=== PATIENT | female | born 1985 | race Caucasian/White ===

== ENCOUNTER 2022-03-25 11:15 | Day surgery (SDC) | payer BC, SELFPAY ==
--- NOTE | 2022-03-02 13:16 | PCM.HP.BLA ---
History and Physical Date of Admission: 03/25/22 HPI: The patient is a 36 year old female presenting for pre-operative visit. She is scheduled for Hysteroscopy D&C and endoemtrial ablation, for menorrhagia on 03/25/22. Procedure discussed along with risks, benefits and complications. Other alternatives discussed for management. Consent form signed? Yes. ? ? PAST MEDICAL HISTORY PAST MEDICAL HISTORY Diagnosis Date ? DEPRESSION 2007 ? Gestational diabetes 08/23/2012 ? History of depression 08/22/2012 ? 08/22/2012Pt has a history of depression diagnosed in 2007. She has been off medication for 4 years. She believes she is doing well off medication. She had previously seen a doctor in [place], [place]. Discussed increased risks of depression during and and importance of reporting the development or worsening of symptoms should they occur. Pt denies ever having any suicidal tho ? History of PCOS ? ? Infertility, female ? ? Preeclampsia ? ? ? PAST SURGICAL HISTORY PAST SURGICAL HISTORY Procedure Laterality Date ? SECTION HX ? 03/23/2013 ? GASTRIC BYPASS HX ? 2019 ? KNEE LEFT OP SURGERY ? 08/01/2004 ? KNEE SURGERY HX ? 09/01/2014 ? right knee ? PAST SURGICAL HISTORY OF ? 2017 ? tubal sterilization ? ? ? CURRENT MEDICATIONS Current Outpatient Medications Medication Sig Dispense Refill ? rOPINIRole (REQUIP) 1 mg tablet Take 1 mg by mouth. ? ? ? metoprolol tartrate, short acting, (LOPRESSOR) 25 mg tablet Take 25 mg by mouth twice daily. ? ? ? tranexamic acid (LYSTEDA) 650 mg tablet Take 2 tablets by mouth three times daily as needed (heavy menstrual bleeding) for up to 5 days. (Patient not taking: Reported on 01/25/2022 ) 30 tablet 1 ? No current facility-administered medications for this visit. ? ? ALLERGIES: Patient has no known allergies. ? PERSONAL HISTORY: SOCIAL HISTORY Social History ? Tobacco Use ? Smoking status: Never Smoker ? Smokeless tobacco: Never Used Substance Use Topics ? Alcohol use: Yes ? ? Comment: rare,NOT WHILE ? Drug use: No ? FAMILY HISTORY: FAMILY HISTORY FAMILY HISTORY Problem Relation Age of Onset ? Diabetes Maternal Grandmother ? ? Diabetes Paternal Grandfather ? ? Cancer Maternal Grandmother ? ? UTERINE ? Breast Cancer Mother 50 ? ? REVIEW OF SYMPTOMS: GENERAL: denies fevers or chills ENDOCRINOLOGY: has not been on steroids Cardiology : denies palpitations or chest pain Respiratory: denies SOB or cough Hematology: denies history of prolonged bleeding or easy bruising or VTE Allergy: Denies history of personal or family history of allergy to anesthesia ? PHYSICAL EXAMINATION: ? VITALS: Last menstrual period 01/03/2022. ? GENERAL: The patient is well nourished, well hydrated in no acute distress. , The patient is oriented to time, place, and person. NECK: Supple. No lynphadenopathy, normal thyroid, no thyromegaly. LUNGS: Clear to auscultation bilaterally. no wheezes, rhonchi or rales HEART: Regular rate and rhythm, Normal heart sounds and No murmurs or gallops ? IMPRESSION: menorrhagia ? PLAN: The risks/benefits/alternatives and personal involved for the planned hysteroscopy D&C w/ endometrial ablation were reviewed with the patient. Her questions were answered to her satisfaction and she desires to proceed. Consent was signed. I reviewed with her postop instructions and expectations. ? ? I have reviewed and updated past medical and surgical history, medications and allergies Assessment & Plan Assessment/Plan (1) Menorrhagia:
[2022-03-25] VITALS (10 sets, daily range): BP systolic 122–145; BP diastolic 73–96; PULSE 72–88; RESP 16; TEMP 36.4–36.8; O2SAT 97–100; BMI 35.2
[2022-03-25 11:53] LABS: Internal QC Validated? YES +Cl - CLEAR BKGD; Pregnancy, Urine Negative Negative
[2022-03-25] MEDS: Acetaminophen 500 MG Tablet 1000 MG PO (12:07)
[2022-03-25] MEDS: Lactated Ringers 1,000 ML 15 ML IV (12:07)
[2022-03-25] MEDS: Ketorolac 30 MG/ML Syringe IV (12:08)
[2022-03-25 12:34] LABS: Hematocrit 35.5 % (37-47); Hemoglobin 11.7 g/dL (12.0-15.0); Mean Corpuscular Hgb 28.3 pg (27.0-32.0); Mean Corpuscular Volume 85.7 fL (81-99); Mean Platelet Vol. 11.2 fl (6.2-12.0); Platelet Count 136 K/mm3 (150-450); RBC Distribution Width CV 13.4 % (11.6-14.6); RBC Distribution Width SD 41.9 fl (35.1-43.9); Red Blood Count 4.14 M/mm3 (4.2-5.4); White Blood Count 5.1 K/mm3 (4.4-11.0)
--- NOTE | 2022-03-25 13:15 | DCINST_ITS ---
Discharge Instructions Diet Discharge Diet: No restrictions Activity May resume sexual activity in: 1 week Lifting Restrictions: none Dressing / Incision Call your doctor if your incision/area has: Sudden Increased Bleeding and Foul Smelling Discharge Call your doctor if you observe: Fever of 101 or Higher and Using more than 1 pad per hour (for 2 hrs in a row) Follow Up Care Please Follow Up With: Chelsie Gore MD When: 2-4 weeks or as needed. Call [phone] to make an appointment or with any concerns. Test Results: Test results from this visit will be discussed in further detail at your follow- up appointment, if applicable. Discharge Plan Admission Primary Reason for Your Visit: Endometrial ablation Attending Provider: Chelsie Gore Primary Care Provider: Yee Serrano NP Discharge Orders/Prescriptions Prescriptions: New ibuprofen [ibuprofen] 600 MG tablet 600 mg PO Q6H PRN (Reason: Pain) 10 Days Qty: 20 1RF Continued ropinirole 1 mg tablet 1.5 mg PO DAILY Label Comments: TAKE 1 TABLET BY MOUTH AT BEDTIME metoprolol succinate 25 mg tablet extended release 24 hr 25 mg PO DAILY Referrals / Follow Up: Yee Serrano NP, [facility] [facility]ATOR[facility] [Primary Care Provider] - Disposition Disposition (needs filled in before D/C Order can be placed): Home, Self Care
--- NOTE | 2022-03-25 13:18 | PCM.OPRPT ---
Problems Associated Problem List Diagnoses (1) Menorrhagia: Report of Operation Date of Procedure: 03/25/22 Pre-Operative Diagnosis: menorrhagia` Post-Operative Diagnosis: same Surgery/Procedure Performed:: Hysteroscopy with endometrial ablation- Faye Description of Surgical Findings:: normal cervix, vagina and endometrial cavity Surgeon: Chelsie Gore behavioral modification assistant: Jadiel Interiano Type of Anesthesia: MAC Anesthesiologist: Anand Rodriguez Special Medications: none Specimen's removed: none Drains: none Estimated Blood Loss (mL): 10 Fluids Replaced: 1100 Description of Procedure: The patient was taken to the OR where she was prepped and draped in dorsal lithotomy position. The weighted speculum was placed in the vagina and the anterior lip of the cervix was grasped with a single-tooth tenaculum. A paracervical block was administered with 1% lidocaine with 1-200,000 epinephrine solution. The cervix was dilated serially with Hegar dilators. The 5mm hysteroscope was placed into the uterine cavity and the above findings were noted. Bilateral tubal ostia were identified. The uterus sounded to 8cm and the cervical length was 4 cm. The endometrial cavity length was 4cm. The hysteroscope was removed. The Faye device was set to 4cm. The instrument was then seated into the endometrial cavity and the indicator was in the green. The cervical seal balloon was inflated and the uterine integrity test was passed. The ablation procedure was initiated and completed without interruption. During the ablation procedure gentle traction was held on the tenaculum and the Faye device was held up against the uterine fundus. When the ablation procedure was completed the Faye was removed. The tenaculum was removed and the tenaculum site was noted to be hemostatic. All sponge and needle counts were correct. A vaginal sweep was performed by me. The patient was awakened and taken to the recovery room in stable condition. Hysteroscopic ins: 300cc normal saline Hysteroscopic outs:200cc Findings: Endometrial cavity: Normal, no fibroids or polyps noted Cervix: Normal Vagina: Normal Grafts/Implants Used: none Procedure Start Time: 13:32 Procedure Stop Time: 13:45 Complications none Admit VTE Documentation VTE Present on Admission: No VTE Mechan Device Prophylaxis: SCD's Reason prophylaxis not ordered:: Procedure Not Indicated
[2022-03-25] MEDS: Lidocaine 1%/Epi 1:200 (30ml) 30 ML AMPUL (13:32)
[2022-03-25] MEDS: Lactated Ringers 1,000 ML 75 ML IV (14:46)
[2022-03-25] MEDS: oxyCODONE 5 MG Tablet PO (15:25)
== END 2022-03-25 16:21 | disposition home or self-care (01) ==
LOC: SDC 11:20 → AC 11:21
PROVIDERS: PCP Nurse Practitioner Family; Referring Provider Obstetrics & Gynecology; Visit Provider Obstetrics & Gynecology
PROC: 0U5B8ZZ Destruction of Endometrium, Via Natural or Artificial Opening Endoscopic (ICD-10-PCS; CPT 58558; principal; 2022-03-25 12:30)
DX: N92.0 Excessive and frequent menstruation with regular cycle (principal); I10 Essential (primary) hypertension; Z98.84 Bariatric surgery status
CPT/HCPCS: 58563; 00952; 81025; 85027; J7120; J2405

== ENCOUNTER → 2024-01-30 | Outpatient (CLI) | payer BC, SELFPAY | END | disposition home or self-care (01) | LOC: LABSPEC 15:05 | PROVIDERS: PCP Nurse Practitioner Family; Referring Provider Nurse Practitioner Family; Visit Provider Nurse Practitioner Family | DX: N39.0 Urinary tract infection, site not specified (principal) | CPT/HCPCS: 87077; 87086; 87088; 87186 ==

== ENCOUNTER → 2024-04-03 | Outpatient (CLI) | payer BC, SELFPAY ==
[2024-04-03 10:39] LABS: Mucous, Urine 0 SEEN /hpf (<or=2+); Red Blood Cells-Urine 0 SEEN /hpf (0-5); Squamous Epithelial Cells - UA 0 SEEN /hpf (5-10); White Blood Cells 0 SEEN /hpf (0-5)
[2024-04-03 12:19] LABS: Color, Urine Yellow (Yellow); Glucose, Dipstick Normal (Normal); Ketone-Dipstick Negative (Negative); Leukocyte Esterase-Dipstick Negative /ul (Negative); Nitrite-Dipstick Negative (Negative); Occult Blood-Urine Negative /ul (Negative); Protein-Dipstick 15 mg/dl (Negative); Specific Gravity, Urine 1.015 (1.002-1.030); Urine Bilirubin Dipstick Negative (Negative); Urine Clarity Clear (Clear); Urine Urobilinogen Normal (Normal); Urine pH 6.5 (5.0 - 8.0)
[2024-04-03 12:24] LABS: Absolute Lymphocyte Count 1.17 X10^3/uL (0.83-4.51); Basophil# 0.01 X10^3/uL; Basophil% 0.2 % (0-1); Eosinophil# 0.06 X10^3/uL; Eosinophils% 1.3 % (0-5); Hematocrit 34.8 % (37-47); Hemoglobin 10.5 g/dL (12.0-15.0); Lymphocyte # 1.17 X10^3/ul (0.83-4.51); Lymphocyte % 25.8 % (19-41); Mean Corp Hgb Conc 30.2 g/dL (32-36); Mean Corpuscular Hgb 25.8 pg (27.0-32.0); Mean Corpuscular Volume 85.5 fL (81-99); Mean Platelet Vol. 10.4 fl (6.2-12.0); Monocyte% 6.6 % (0-10); NRBC Flagged by Analyzer 0 % (0-5); Neutrophil # 2.98 X10^3/uL (2.7-7.7); Neutrophil % 65.9 % (47-70); Platelet Count 282 K/mm3 (150-450); RBC Distribution Width CV 14.8 % (11.6-14.6); RBC Distribution Width SD 46.5 fl (35.1-43.9); Red Blood Count 4.07 M/mm3 (4.2-5.4); White Blood Count 4.5 K/mm3 (4.4-11.0)
[2024-04-03 12:35] LABS: Bacteria 1+ /hpf (None Seen)
[2024-04-03 12:41] LABS: Vitamin B12 261 pg/mL (211-911)
[2024-04-03 13:07] LABS: AST(SGOT) 14 U/L (15-37); Alanine Aminotransfer ALT/SGPT 11 U/L (13-56); Albumin, Serum 3.4 g/dL (3.2-5.0); Alkaline Phosphatase 59 U/L (45-117); Anion Gap 7 (5-15); BUN 7 mg/dL (7-18); BUN/Creat Ratio 13.4 RATIO (10-20); Chloride 106 mmol/L (98-107); Cholesterol 137 mg/dL (200); Creatinine, Serum 0.52 mg/dL (0.55-1.02); EST Glomerular Filtration Rate 141 mL/min (>60); Est Glom Filt Rate - Afr Amer 170 mL/min (>60); Ferritin 5 ng/mL (8-252); Globulin 3.4 g/dL (2.2-4.2); Glucose 90 mg/dL (74-106); High Density Lipoprotein 59 mg/dL; Iron 37 ug/dL (50-170); Phosphorus 3.7 mg/dL (2.5-4.9); Potassium 4.4 mmol/L (3.5-5.1); Protein, Total 6.8 g/dL (6.4-8.2); Sodium Level 138 mmol/L (136-145); Thyroid Stim Hormone (TSH) 0.764 uIU/mL (0.358-3.740); Triglycerides 70 mg/dL; Very Low Density Lipoprotein 14 mg/dL (5-40)
[2024-04-05 02:08] LABS: Zinc, Plasma or Serum 55 ug/dL (44-115)
== END | disposition home or self-care (01) ==
LOC: MFPLAB 10:27
PROVIDERS: PCP Nurse Practitioner Family; Visit Provider Family Medicine
DX: I10 Essential (primary) hypertension (principal); Z98.84 Bariatric surgery status
CPT/HCPCS: 36415; 80053; 80061; 81001; 82607; 82728; 83540; 83735; 84100; 84443; 84630; 85025

== ENCOUNTER → 2024-08-20 | Outpatient (CLI) | payer BC, SELFPAY ==
--- NOTE | 2024-08-20 16:01 | MRI_ITS ---
EXAM: MR HEAD WITHOUT AND WITH INTRAVENOUS CONTRAST CLINICAL INDICATION: headache that awakens from sleep, vomiting TECHNIQUE: Multiplanar and multisequence MR images of the brain were obtained without and with intravenous contrast. CONTRAST: IV 13cc Clariscan COMPARISON: No relevant prior studies available. FINDINGS: BRAIN AND EXTRA-AXIAL SPACES: No focal signal abnormalities throughout the brain parenchyma in all pulse sequences. Following IV contrast administration, there are no abnormal enhancing lesions intra-axially or extra-axially. No intra- or extra-axial hemorrhage. No evidence of acute infarct. No intracranial mass or mass effect. There is preservation of the moser/white matter interface. Posterior fossa structures are unremarkable. Ventricles are appropriate for age. No hydrocephalus. Basal cisterns are patent. SELLA: Unremarkable. Normal sella turcica, pituitary gland, infundibular stalk, optic chiasm and hypothalamus. AUDITORY SYSTEM: Unremarkable. The internal auditory canals are patent. BONES/JOINTS: Unremarkable. No discrete lytic or blastic abnormalities. SINUSES: Unremarkable as visualized. Clear. MASTOID AIR CELLS: Unremarkable as visualized. Clear. ORBITS: Unremarkable as visualized. Both globes, extraocular muscles, optic nerves and retrobulbar fat appear unremarkable. VASCULATURE: Unremarkable as visualized. Normal flow voids in the major intracranial circulation. MRI/Brain W/WO Contrast IMPRESSION: Normal MRI brain with and without intravenous contrast. Electronically Signed: Rod Gordon MD at 11:12 [facility] ,
== END | disposition home or self-care (01) ==
LOC: MRI 15:55
PROVIDERS: PCP Family Medicine; Referring Provider Family Medicine; Visit Provider Family Medicine
DX: R51.9 Headache, unspecified (principal)
CPT/HCPCS: 70553; A9575

== ENCOUNTER → 2024-09-26 | Outpatient (CLI) | payer BC, SELFPAY ==
[2024-09-26 12:26] LABS: Absolute Lymphocyte Count 1.14 X10^3/uL (0.83-4.51); Absolute Neutrophil Count 2.4 X10^3/uL (2.0-7.7); Basophil# 0.01 X10^3/uL; Basophil% 0.2 % (0-1); Eosinophil# 0.08 X10^3/uL; Hematocrit 35.8 % (37-47); Hemoglobin 11.2 g/dL (12.0-15.0); Lymphocyte # 1.14 X10^3/ul (0.83-4.51); Lymphocyte % 28.1 % (19-41); Mean Corp Hgb Conc 31.3 g/dL (32-36); Mean Corpuscular Hgb 27.7 pg (27.0-32.0); Mean Corpuscular Volume 88.6 fL (81-99); Mean Platelet Vol. 10.3 fl (6.2-12.0); Monocyte# 0.38 X10^3/uL; Monocyte% 9.4 % (0-10); NRBC Flagged by Analyzer 0 % (0-5); Neutrophil # 2.43 X10^3/uL (2.7-7.7); Neutrophil % 60.1 % (47-70); Platelet Count 262 K/mm3 (150-450); RBC Distribution Width CV 13.2 % (11.6-14.6); RBC Distribution Width SD 43.3 fl (35.1-43.9); Red Blood Count 4.04 M/mm3 (4.2-5.4); White Blood Count 4.1 K/mm3 (4.4-11.0)
[2024-09-26 13:03] LABS: EST Glomerular Filtration Rate 122 (>60); Ferritin 9 ng/mL (22-378)
[2024-09-26 16:12] LABS: ALB/GLOB Ratio 1.5 RATIO (0.9-2.4); AST(SGOT) 19 U/L (<=31); Alanine Aminotransfer ALT/SGPT 10 U/L (<=34); Albumin, Serum 4.1 g/dL (3.5-5.0); Alkaline Phosphatase 69 U/L (35-104); Anion Gap 11 (5-15); BUN 7 mg/dL (4-19); BUN/Creat Ratio 13.3 RATIO (10-20); Calcium 9.3 mg/dL (7.6-11.0); Carbon Dioxide 24.2 mmol/L (22.0-29.0); Chloride 103 mmol/L (96-108); Creatinine, Serum 0.5 mg/dL (0.6-1.0); Globulin 2.7 g/dL (2.2-4.2); Glucose 79 mg/dL (70-99); Iron 33 ug/dL (50-170); Iron Binding Capacity,Total 409 ug/dL (250-450); Potassium 4.1 mmol/L (3.3-5.1); Protein, Total 6.7 g/dL (5.9-8.4); Sodium Level 138 mmol/L (133-145); Total Bilirubin 0.34 mg/dL (0.00-1.30)
== END | disposition home or self-care (01) ==
LOC: MFPLAB 09:49
PROVIDERS: PCP Family Medicine; Referring Provider Family Medicine; Visit Provider Family Medicine
DX: D50.9 Iron deficiency anemia, unspecified (principal); I10 Essential (primary) hypertension
CPT/HCPCS: 36415; 80053; 82728; 83540; 83550; 85025